=== PATIENT | female | born 1955 | race Caucasian/White ===

== ENCOUNTER → 2019-09-06 | Outpatient (CLI) | payer SELFPAY ==
[2019-09-06 11:22] LABS: BASOPHILS ABSOLUTE AUTO 0.02 K/mm3 (0.00-0.23); BASOPHILS PERCENT AUTO 0 % (0-2); EOSINOPHILS ABSOLUTE AUTO 0.13 K/mm3 (0.00-0.68); EOSINOPHILS PERCENT AUTO 3 % (0-6); IMMATURE GRAN ABSOLUTE AUTO 0.01 K/mm3 (0.00-0.10); IMMATURE GRAN PERCENT AUTO 0 % (0-1); LYMPHOCYTES ABSOLUTE AUTO 0.58 K/mm3 (0.84-5.20); LYMPHOCYTES PERCENT AUTO 12 % (21-46); MONOCYTES ABSOLUTE AUTO 0.56 K/mm3 (0.16-1.47); MONOCYTES PERCENT AUTO 11 % (4-13); Mean Corpuscular HGB 34.5 pg (26.0-34.0); Mean Corpuscular HGB Conc 34.2 g/dL (31.5-36.5); Mean Corpuscular Volume 101 fL (80-100); Mean Platelet Volume 12.2 fL (9.1-12.4); NEUTROPHILS ABSOLUTE AUTO 3.69 K/mm3 (1.96-9.15); NEUTROPHILS PERCENT AUTO 74 % (41-73); Platelet Count 60 K/mm3 (150-400); RDW Coefficient Variation 12.7 % (11.7-14.2); RDW Standard Deviation 47.4 fL (35.1-46.3); Red Blood Cell Count 3.77 M/mm3 (3.80-5.20); White Blood Cell Count 4.99 K/mm3 (4.00-11.30)
[2019-09-06 11:32] LABS: Albumin, Blood 2.7 g/dL (3.4-5.0); Albumin/Globulin Ratio 0.6 (0.8-1.8); Bilirubin, Total 1.6 mg/dL (0.1-1.0); Bun/Creatinine Ratio 14.4 (12.0-20.0); Calcium, Blood 8.9 mg/dL (8.5-10.1); Creatinine, Blood 1.32 mg/dL (0.40-1.00); Globulin, Blood 4.8 g/dL (2.2-4.0); Potassium, Blood 4.1 mmol/L (3.5-5.5); Total Protein, Blood 7.5 g/dL (6.4-8.2)
== END | disposition home or self-care (01) ==
LOC: LAB EV 11:18 → LAB SHORT 11:18
PROVIDERS: Physician Assistant
DX: L03.119 Cellulitis of unspecified part of limb (principal)
CPT/HCPCS: 80053; 85025

== ENCOUNTER 2019-09-14 07:31 | Day surgery (SDC) | payer SELFPAY | END 2019-09-14 22:38 | disposition home or self-care (01) | LOC: WOUND 07:31 | DX: E11.622 Type 2 diabetes mellitus with other skin ulcer (principal); L97.822 Non-pressure chronic ulcer of other part of left lower leg with fat layer exposed; L03.116 Cellulitis of left lower limb; Z88.5 Allergy status to narcotic agent; Z87.891 Personal history of nicotine dependence | CPT/HCPCS: 87071; 87075; 87077; 87186; 87205; G0463 ==

== ENCOUNTER 2019-09-23 00:06 | Day surgery (SDC) | payer SELFPAY | END 2019-09-23 23:54 | disposition home or self-care (01) | LOC: WOUND 00:06 | DX: E11.622 Type 2 diabetes mellitus with other skin ulcer (principal); L97.822 Non-pressure chronic ulcer of other part of left lower leg with fat layer exposed; L03.116 Cellulitis of left lower limb ==

== ENCOUNTER 2019-09-30 08:00 | Day surgery (SDC) | payer SELFPAY | END 2019-09-30 23:20 | disposition home or self-care (01) | LOC: WOUND 08:00 | DX: E11.622 Type 2 diabetes mellitus with other skin ulcer (principal); L97.829 Non-pressure chronic ulcer of other part of left lower leg with unspecified severity; L03.116 Cellulitis of left lower limb | CPT/HCPCS: G0463 ==

== ENCOUNTER 2019-10-08 10:25 | Day surgery (SDC) | payer SELFPAY | END 2019-10-08 23:09 | disposition home or self-care (01) | LOC: WOUND 10:25 | DX: E11.622 Type 2 diabetes mellitus with other skin ulcer (principal); L97.822 Non-pressure chronic ulcer of other part of left lower leg with fat layer exposed; E11.628 Type 2 diabetes mellitus with other skin complications; L03.115 Cellulitis of right lower limb; E11.52 Type 2 diabetes mellitus with diabetic peripheral angiopathy with gangrene; I96 Gangrene, not elsewhere classified; K74.60 Unspecified cirrhosis of liver ==

== ENCOUNTER 2019-11-04 08:00 | Day surgery (SDC) | payer BC | END 2019-11-04 23:04 | disposition home or self-care (01) | LOC: WOUND 08:00 | DX: E11.622 Type 2 diabetes mellitus with other skin ulcer (principal); L97.822 Non-pressure chronic ulcer of other part of left lower leg with fat layer exposed; I96 Gangrene, not elsewhere classified; I89.0 Lymphedema, not elsewhere classified; K74.60 Unspecified cirrhosis of liver ==

== ENCOUNTER 2019-11-12 07:50 | Day surgery (SDC) | payer BC | END 2019-11-12 23:52 | disposition home or self-care (01) | LOC: WOUND 07:50 | DX: E11.622 Type 2 diabetes mellitus with other skin ulcer (principal); L97.822 Non-pressure chronic ulcer of other part of left lower leg with fat layer exposed; E11.52 Type 2 diabetes mellitus with diabetic peripheral angiopathy with gangrene; I96 Gangrene, not elsewhere classified; I89.0 Lymphedema, not elsewhere classified; K74.60 Unspecified cirrhosis of liver; M17.12 Unilateral primary osteoarthritis, left knee ==

== ENCOUNTER 2019-11-19 07:54 | Day surgery (SDC) | payer BC | END 2019-11-19 23:48 | disposition home or self-care (01) | LOC: WOUND 07:54 | DX: E11.622 Type 2 diabetes mellitus with other skin ulcer (principal); L97.822 Non-pressure chronic ulcer of other part of left lower leg with fat layer exposed | CPT/HCPCS: G0463 ==

== ENCOUNTER 2019-11-26 07:55 | Day surgery (SDC) | payer BC | END 2019-11-26 22:52 | disposition home or self-care (01) | LOC: WOUND | DX: E11.622 Type 2 diabetes mellitus with other skin ulcer (principal); L97.829 Non-pressure chronic ulcer of other part of left lower leg with unspecified severity ==

== ENCOUNTER 2019-12-10 07:59 | Day surgery (SDC) | payer BC | END 2019-12-10 23:10 | disposition home or self-care (01) | LOC: WOUND | DX: E11.622 Type 2 diabetes mellitus with other skin ulcer (principal); L97.822 Non-pressure chronic ulcer of other part of left lower leg with fat layer exposed; E11.52 Type 2 diabetes mellitus with diabetic peripheral angiopathy with gangrene; I96 Gangrene, not elsewhere classified; I89.0 Lymphedema, not elsewhere classified; K74.60 Unspecified cirrhosis of liver ==

== ENCOUNTER 2019-12-13 11:56 | Day surgery (SDC) | payer BC | END 2019-12-13 22:41 | disposition home or self-care (01) | LOC: WOUND 11:56 | DX: E11.622 Type 2 diabetes mellitus with other skin ulcer (principal); L97.822 Non-pressure chronic ulcer of other part of left lower leg with fat layer exposed; E11.52 Type 2 diabetes mellitus with diabetic peripheral angiopathy with gangrene; I96 Gangrene, not elsewhere classified; I89.0 Lymphedema, not elsewhere classified; K74.60 Unspecified cirrhosis of liver; Z79.899 Other long term (current) drug therapy | CPT/HCPCS: G0463 ==

== ENCOUNTER 2019-12-17 00:55 | Day surgery (SDC) | payer BC | END 2019-12-17 23:05 | disposition home or self-care (01) | LOC: WOUND 00:55 | DX: E11.622 Type 2 diabetes mellitus with other skin ulcer (principal); L97.822 Non-pressure chronic ulcer of other part of left lower leg with fat layer exposed ==

== ENCOUNTER 2019-12-31 01:08 | Day surgery (SDC) | payer BC | END 2019-12-31 23:13 | disposition home or self-care (01) | LOC: WOUND 01:08 | DX: E11.622 Type 2 diabetes mellitus with other skin ulcer (principal); L97.829 Non-pressure chronic ulcer of other part of left lower leg with unspecified severity; R60.9 Edema, unspecified ==

== ENCOUNTER 2020-01-07 02:31 | Day surgery (SDC) | payer BC | END 2020-01-07 23:23 | disposition home or self-care (01) | LOC: WOUND 02:31 | DX: E11.622 Type 2 diabetes mellitus with other skin ulcer (principal); L97.829 Non-pressure chronic ulcer of other part of left lower leg with unspecified severity | CPT/HCPCS: G0463 ==

== ENCOUNTER 2020-01-21 00:38 | Day surgery (SDC) | payer BC | END 2020-01-21 23:05 | disposition home or self-care (01) | LOC: WOUND 00:38 | DX: E11.622 Type 2 diabetes mellitus with other skin ulcer (principal); L97.822 Non-pressure chronic ulcer of other part of left lower leg with fat layer exposed; R60.9 Edema, unspecified ==

== ENCOUNTER 2020-01-28 01:03 | Day surgery (SDC) | payer BC | END 2020-01-28 23:35 | disposition home or self-care (01) | LOC: WOUND 01:03 | DX: E11.622 Type 2 diabetes mellitus with other skin ulcer (principal); L97.829 Non-pressure chronic ulcer of other part of left lower leg with unspecified severity; R60.9 Edema, unspecified; K74.60 Unspecified cirrhosis of liver ==

== ENCOUNTER 2020-02-04 01:47 | Day surgery (SDC) | payer BC | END 2020-02-04 23:22 | disposition home or self-care (01) | LOC: WOUND 01:47 | DX: E11.622 Type 2 diabetes mellitus with other skin ulcer (principal); L97.829 Non-pressure chronic ulcer of other part of left lower leg with unspecified severity; R60.9 Edema, unspecified ==

== ENCOUNTER 2020-02-11 02:51 | Day surgery (SDC) | payer BC | END 2020-02-11 23:09 | disposition home or self-care (01) | LOC: WOUND 02:51 | DX: E11.622 Type 2 diabetes mellitus with other skin ulcer (principal); L97.822 Non-pressure chronic ulcer of other part of left lower leg with fat layer exposed; K74.60 Unspecified cirrhosis of liver | CPT/HCPCS: G0463 ==

== ENCOUNTER 2020-02-25 00:38 | Day surgery (SDC) | payer BC | END 2020-02-25 22:39 | disposition home or self-care (01) | LOC: WOUND 00:38 | DX: E11.622 Type 2 diabetes mellitus with other skin ulcer (principal); L97.829 Non-pressure chronic ulcer of other part of left lower leg with unspecified severity; I87.2 Venous insufficiency (chronic) (peripheral); K74.60 Unspecified cirrhosis of liver | CPT/HCPCS: G0463 ==

== ENCOUNTER 2020-03-10 00:17 | Day surgery (SDC) | payer BC | END 2020-03-10 22:36 | disposition home or self-care (01) | LOC: WOUND 00:17 | DX: E11.622 Type 2 diabetes mellitus with other skin ulcer (principal); L97.822 Non-pressure chronic ulcer of other part of left lower leg with fat layer exposed; K74.60 Unspecified cirrhosis of liver; R60.9 Edema, unspecified ==

== ENCOUNTER 2020-03-24 00:41 | Day surgery (SDC) | payer BC | END 2020-03-24 23:10 | disposition home or self-care (01) | LOC: WOUND 00:41 | DX: E11.622 Type 2 diabetes mellitus with other skin ulcer (principal); L97.829 Non-pressure chronic ulcer of other part of left lower leg with unspecified severity; R60.9 Edema, unspecified | CPT/HCPCS: G0463 ==

== ENCOUNTER 2020-05-10 10:31 | Day surgery (SDC) | payer BC ==
[~2020-05-10] VITALS: Ht 160 cm; Wt 113.8 kg
[~2020-05-10 10:31] MED LIST: ALDACTONE100 MG PO; FURO80 PO; HYDHCL25 PO; PROP10 PO
== END 2020-05-10 12:22 | disposition home or self-care (01) ==
LOC: ORSCSDS 10:31
PROVIDERS: Internal Medicine Gastroenterology
PROC: 0DJ08ZZ Inspection of Upper Intestinal Tract, Via Natural or Artificial Opening Endoscopic (ICD-10-PCS; principal; 2020-05-10 11:45)
DX: K74.60 Unspecified cirrhosis of liver (principal); Z13.810 Encounter for screening for upper gastrointestinal disorder; K20.9 Esophagitis, unspecified; K76.6 Portal hypertension; K31.89 Other diseases of stomach and duodenum; I10 Essential (primary) hypertension; E11.9 Type 2 diabetes mellitus without complications; E66.01 Morbid (severe) obesity due to excess calories; Z68.41 Body mass index [BMI] 40.0-44.9, adult; Z79.899 Other long term (current) drug therapy
CPT/HCPCS: 82947; J2704; J7120

== ENCOUNTER → 2022-10-25 | Outpatient (CLI) | payer MEDICARE | END | disposition home or self-care (01) | DX: K74.60 Unspecified cirrhosis of liver (principal); R18.8 Other ascites ==

== ENCOUNTER 2022-11-07 11:02 | Inpatient (IN) | payer MEDICARE ==
[~2022-11-07] VITALS: Ht 160 cm; Wt 104.3 kg
[2022-11-07 11:47] LABS: BASOPHILS ABSOLUTE AUTO 0.03 K/mm3 (0.00-0.23); BASOPHILS PERCENT AUTO 1 % (0-2); EOSINOPHILS ABSOLUTE AUTO 0.11 K/mm3 (0.00-0.68); EOSINOPHILS PERCENT AUTO 2 % (0-6); Hematocrit 26.9 % (33.0-51.0); Hemoglobin 9.1 g/dL (11.5-16.0); IMMATURE GRAN ABSOLUTE AUTO 0.02 K/mm3 (0.00-0.10); IMMATURE GRAN PERCENT AUTO 0 % (0-1); LYMPHOCYTES ABSOLUTE AUTO 0.43 K/mm3 (0.84-5.20); LYMPHOCYTES PERCENT AUTO 9 % (21-46); MONOCYTES ABSOLUTE AUTO 0.65 K/mm3 (0.16-1.47); MONOCYTES PERCENT AUTO 13 % (4-13); Mean Corpuscular HGB 33.8 pg (26.0-34.0); Mean Corpuscular HGB Conc 33.8 g/dL (31.5-36.5); Mean Corpuscular Volume 100 fL (80-100); Mean Platelet Volume 10.8 fL (9.1-12.4); NEUTROPHILS ABSOLUTE AUTO 3.69 K/mm3 (1.96-9.15); NEUTROPHILS PERCENT AUTO 75 % (41-73); Platelet Count 87 K/mm3 (150-400); RDW Coefficient Variation 14.6 % (11.7-14.2); RDW Standard Deviation 51.5 fL (35.1-46.3); Red Blood Cell Count 2.69 M/mm3 (3.80-5.20); White Blood Cell Count 4.93 K/mm3 (4.00-11.30)
[2022-11-07 12:16] LABS: Alanine Aminotransfer (ALT/SGP 40 U/L (12-78); Albumin/Globulin Ratio 0.4 (0.8-1.8); Alk Phos 134 U/L (50-136); Anion Gap 8 mmol/L (6-16); Aspartate Aminotrans (AST/SGOT 61 U/L (12-37); Bilirubin, Total 4.3 mg/dL (0.1-1.0); Blood Urea Nitrogen 43 mg/dL (8-24); Bun/Creatinine Ratio 20.8 (12.0-20.0); CO2, Blood 20 mmol/L (21-32); Calcium, Blood 8.9 mg/dL (8.5-10.1); Chloride, Blood 104 mmol/L (98-108); Creatinine, Blood 2.07 mg/dL (0.40-1.00); Ethanol (Alcohol), Blood, Med <3 mg/dL; Globulin, Blood 4.6 g/dL (2.2-4.0); Glomerular Filtration Rate 26 (60-); Glucose, Blood 168 mg/dL (70-99); Potassium, Blood 4.6 mmol/L (3.5-5.5); Sodium, Blood 132 mmol/L (136-145); Total Protein, Blood 6.6 g/dL (6.4-8.2)
[2022-11-07 13:08] LABS: Source, Urine Clean Catch
[2022-11-07 13:15] LABS: Appearance, Urine Hazy (Clear); Blood, Urine Neg (Neg); Color, Urine Amber (P-Yellow); Glucose Qualitative, Urine Neg (Neg); Ketones, Urine 1+ (Neg); Leukocyte Esterase, Urine Neg (Neg); Nitrite, Urine Neg (Neg); Protein, Urine 1+ (Neg); Specific Gravity, Urine 1.025 (1.003-1.022); Urobilinogen, Urine 1+ (Normal)
[2022-11-07 13:15] LABS: Influenza A, PCR NEGATIVE (NEGATIVE); Influenza B, PCR NEGATIVE (NEGATIVE); Resp Syncytial Virus, PCR NEGATIVE (NEGATIVE); SARS-Cov-2 (COVID-19) PCR, MMC NEGATIVE (NEGATIVE)
[2022-11-07 13:31] LABS: Bilirubin, Urine 1+ (Neg)
[2022-11-07 13:32] LABS: Hyaline Casts 50-100 /lpf (0-2); Squamous Epithelial Cells Many /hpf (Few)
[2022-11-07] MEDS ORDERED: FURO80 PO (13:36)
[2022-11-07] MEDS ORDERED: FAMO20 PO (13:36)
[2022-11-07] MEDS ORDERED: CYCL10 PO (13:36)
[2022-11-07 13:38] LABS: Red Blood Cells, Urine 0-2 /hpf (0-2); White Blood Cells, Urine 0-2 /hpf (0-5)
[2022-11-07] MEDS ORDERED: PROP10 PO (13:38)
[2022-11-07 13:39] LABS: Bacteria Few /hpf
[2022-11-07 14:35] LABS: Base Excess Venous -3.4 mmol/L; Bicarbonate Venous 21.8 mmol/L (24.0-30.0); pH Blood Venous 7.39 (7.34-7.37)
--- NOTE | 2022-11-07 18:55 | NUR ---
ADMIT 325 REPORT RECEIVED. PT ARRIVED VIA GURNEY ACCOMAPNIED BY WAREHOUSE PROCESSOR. PT JAUNDICED. SHE OPENED HER EYES AND SMILED. TRANSFERED TO NEW BED WITH SLIDER AND 4 ASSIST. IV FLUID BOLUS 500ML COMPLETE. VSS CHECKED. STARTED ORDERED ALBUMIN AND RESTARTED NS 125 ML/HR. SISTER AT BEDSIDE. SONS ARE COMING FROM [place] AND [place]. WITH IVF/ALBUMIN BP HAS STABLIZED AND INCREASED. CONTINUE POC.
--- NOTE | 2022-11-08 04:15 | NUR ---
SHIFT SUMMARY: PT IS ALERT X 1-2, RESPONDS APPROPRIATELY TO QUESTIONS, BUT IS RATHER LETHARGIC. PT REPORTS UNWILLINGNESS TO HAVE RECTAL TUBE TO ADMINISTER LACTULOSE ENEMAS, CALLED DR. TRACY AND RECIEVED ORDER FOR PO LACTULOSE; PT ABLE TO SWALLOW. PT SLEPT MUCH OF THE SHIFT WHEN NOT DISTURBED. NO S/S FOR PAIN, NAUSEA, VOMITING, OR SOB. FLUIDS RUNNING ORDERED. BED IN LOW POSITION, CALL LIGHT WITHIN REACH. WILL REPORT TO DAY NURSE.
[2022-11-08 05:23] LABS: Hematocrit 19.9 % (33.0-51.0); Hemoglobin 6.7 g/dL (11.5-16.0); Mean Corpuscular HGB 33.8 pg (26.0-34.0); Mean Corpuscular HGB Conc 33.7 g/dL (31.5-36.5); Mean Corpuscular Volume 101 fL (80-100); Mean Platelet Volume 11.2 fL (9.1-12.4); Platelet Count 51 K/mm3 (150-400); RDW Coefficient Variation 14.5 % (11.7-14.2); RDW Standard Deviation 51.8 fL (35.1-46.3); Red Blood Cell Count 1.98 M/mm3 (3.80-5.20); White Blood Cell Count 2.91 K/mm3 (4.00-11.30)
[2022-11-08 06:00] LABS: Albumin, Blood 1.9 g/dL (3.4-5.0); Albumin/Globulin Ratio 0.5 (0.8-1.8); Bilirubin, Total 4.3 mg/dL (0.1-1.0); Bun/Creatinine Ratio 21.2 (12.0-20.0); Calcium, Blood 8.4 mg/dL (8.5-10.1); Creatinine, Blood 1.79 mg/dL (0.40-1.00); Globulin, Blood 3.5 g/dL (2.2-4.0); Potassium, Blood 4.3 mmol/L (3.5-5.5); Total Protein, Blood 5.4 g/dL (6.4-8.2)
--- NOTE | 2022-11-08 20:00 | NUR ---
SHIFT SUMMARY PTN DNR, HEPATIC ENCEPHALOPATHY, WHO WAS LETHARGIC LAST SHIFT AND EARLY THIS SHIFT, BUT THEN PTN PERKED UP AND WAS VISITING WITH FAMILY AND CHEERFUL ALL SHIFT. PTN RECEIVED BLOOD TRANSFUSION AND ALBUMIN. PTN RUNNING NS 125 ML/HR. PTN NOW A&O X3-4. WEAK AND REQUIRED ASSIST WITH TRANSFER FROM BED TO BEDSIDE COMMODE. PTN COULD NOT TOLERATE LACTULOSE ELIXER AND OPTED FOR MEDICATION THROUGH RECTAL ENEMA. PTN TOLERATED THIS WELL, BUT WAS NOT ABLE TO HOLD THE LIQUID IN COMPLETELY, RELEASING MOST ON CHUX PADS, IN COMMODE WAS ABOUT 300ML WITH 3 CLUMPS OF FORMED STOOL. PTN NPO AFTER MIDNIGHT FOR POSSIBLE EGD TOMORROW. CONTINUE TO MONITOR.
[2022-11-09 05:33] LABS: BASOPHILS ABSOLUTE AUTO 0.02 K/mm3 (0.00-0.23); BASOPHILS PERCENT AUTO 1 % (0-2); EOSINOPHILS PERCENT AUTO 3 % (0-6); Hematocrit 25.1 % (33.0-51.0); Hemoglobin 8.3 g/dL (11.5-16.0); IMMATURE GRAN ABSOLUTE AUTO 0.02 K/mm3 (0.00-0.10); IMMATURE GRAN PERCENT AUTO 1 % (0-1); LYMPHOCYTES ABSOLUTE AUTO 0.41 K/mm3 (0.84-5.20); LYMPHOCYTES PERCENT AUTO 11 % (21-46); MONOCYTES ABSOLUTE AUTO 0.57 K/mm3 (0.16-1.47); MONOCYTES PERCENT AUTO 16 % (4-13); Mean Corpuscular HGB 33.6 pg (26.0-34.0); Mean Corpuscular HGB Conc 33.1 g/dL (31.5-36.5); Mean Corpuscular Volume 102 fL (80-100); Mean Platelet Volume 10.9 fL (9.1-12.4); NEUTROPHILS ABSOLUTE AUTO 2.53 K/mm3 (1.96-9.15); NEUTROPHILS PERCENT AUTO 70 % (41-73); Platelet Count 55 K/mm3 (150-400); RDW Coefficient Variation 16.8 % (11.7-14.2); RDW Standard Deviation 61.5 fL (35.1-46.3); Red Blood Cell Count 2.47 M/mm3 (3.80-5.20); White Blood Cell Count 3.65 K/mm3 (4.00-11.30)
[2022-11-09 05:50] LABS: Albumin, Blood 2.3 g/dL (3.4-5.0); Albumin/Globulin Ratio 0.7 (0.8-1.8); Bilirubin, Total 7.8 mg/dL (0.1-1.0); Bun/Creatinine Ratio 22.4 (12.0-20.0); Calcium, Blood 8.5 mg/dL (8.5-10.1); Creatinine, Blood 1.56 mg/dL (0.40-1.00); Globulin, Blood 3.4 g/dL (2.2-4.0); Potassium, Blood 4.6 mmol/L (3.5-5.5); Total Protein, Blood 5.7 g/dL (6.4-8.2)
--- NOTE | 2022-11-09 06:51 | NUR ---
A/OX3-4; FORGETFUL /IRRITABLE AT TIMES. COOPERATIVE WITH CARE. NO ACUTE CHANGES THIS SHIFT. MULTIPLE PIV STARTS D/T FAILED (LEAKING) IVs; WIRE BOUND BOX MACHINE HELPER ALERTED TO NEED FOR POWERGLIDE IV. WILL TAKE PO LACTULOSE IF: DILUTED WITH CRANBERRY JUICE /SPRITE /ICE (WITH A STRAW AND NOSE PLUGGED) BED ALARM SET, CALL LIGHT IN REACH; ENCOURAGED TO MAKE NEEDS KNOWN.
--- NOTE | 2022-11-09 14:09 | NUR ---
PATIENT LEFT THE ROOM AT THIS TIME TRANSPORTED VIA GURNEY TO DAY SURGERY BY DAY SURGERY RN, JON.
--- NOTE | 2022-11-09 14:40 | NUR ---
11/09/22 1440 Alis Rosales MONITOR INTACT WITH CONTINUOUS PULSE OXIMETRY AND INTERMITTENT BP.
--- NOTE | 2022-11-09 15:05 | NUR ---
PT AWAKE FROM EGD, RESPONDING APPROPRIATELY, BREATHING RA, VSS. NO NAUSEA OR PAIN. PT APPROPRIATE FOR TRANSFER TO THE FLOOR
--- NOTE | 2022-11-09 18:23 | NUR ---
SHIFT SUMMARY: PATIENT A&OX3-4. FORGETFUL AND MILD CONFUSION. PLEASANT AND COOPERATIVE WITH CARE. USES CALL LIGHT APPROPRIATELY AND ABLE TO ADVOCATE FOR HER NEEDS. PATIENT HAS BEEN NPO SINCE MD FOR EGD TODAY. SCHEDULED PO MEDS WAS NOT GIVEN THIS AM. DENIES CP/CHEST DISCOMFORT. DENIES N/V. LUNGS CLEAR T/O TO AUSCULTATION. DENIES SOB, RR UNLABORED. PATIENT ON RA c SPO2 ABOVE 96%. PATIENT HAD EGD DONE THIS PM. POST-OP VITALS WAS TAKEN. ASSESS PATIENT GAG REFLEX AND SWALLOWING. DENIES TROAT PAIN/DISCOMFORT. PM SCHEDULED LACTULOSE AND PROPRANOLOL WAS GIVEN. PATIENT UP WITH 1-2 ASSIST TO BSC. IV TO L FOREARM SALINE LOCKED. IV TO R AC INFUSING NS AT 125 MLS/HR. VITAL SIGNS REVIEWED. FAMILY AT BEDSIDE T/O THE DAY. BED ALARM ON FOR SAFETY. CALL LIGHT IN REACH.
[2022-11-10 06:06] LABS: BASOPHILS ABSOLUTE AUTO 0.03 K/mm3 (0.00-0.23); BASOPHILS PERCENT AUTO 1 % (0-2); EOSINOPHILS PERCENT AUTO 4 % (0-6); Hemoglobin 8.8 g/dL (11.5-16.0); IMMATURE GRAN ABSOLUTE AUTO 0.03 K/mm3 (0.00-0.10); IMMATURE GRAN PERCENT AUTO 1 % (0-1); LYMPHOCYTES ABSOLUTE AUTO 0.39 K/mm3 (0.84-5.20); LYMPHOCYTES PERCENT AUTO 7 % (21-46); MONOCYTES ABSOLUTE AUTO 0.89 K/mm3 (0.16-1.47); MONOCYTES PERCENT AUTO 16 % (4-13); Mean Corpuscular HGB Conc 32.6 g/dL (31.5-36.5); Mean Corpuscular Volume 101 fL (80-100); NEUTROPHILS ABSOLUTE AUTO 4.16 K/mm3 (1.96-9.15); NEUTROPHILS PERCENT AUTO 73 % (41-73); Platelet Count 71 K/mm3 (150-400); RDW Coefficient Variation 16.5 % (11.7-14.2); Red Blood Cell Count 2.67 M/mm3 (3.80-5.20)
[2022-11-10 06:37] LABS: Albumin, Blood 2.2 g/dL (3.4-5.0); Albumin/Globulin Ratio 0.6 (0.8-1.8); Bilirubin, Total 5.6 mg/dL (0.1-1.0); Bun/Creatinine Ratio 21.8 (12.0-20.0); Calcium, Blood 8.5 mg/dL (8.5-10.1); Creatinine, Blood 1.47 mg/dL (0.40-1.00); Globulin, Blood 3.5 g/dL (2.2-4.0); Potassium, Blood 4.1 mmol/L (3.5-5.5); Total Protein, Blood 5.7 g/dL (6.4-8.2)
[2022-11-10] MEDS ORDERED: Furosemide40 MG PO (14:20)
[2022-11-10] MEDS ORDERED: SPIR50 PO (14:23)
[2022-11-10] MEDS ORDERED: LACT10SY PO (14:24)
[2022-11-10] MEDS ORDERED: PANT40 PO (14:25)
[2022-11-10] MEDS ORDERED: VISBIOME 112.51 EACH PO (14:25)
[2022-11-10] MEDS ORDERED: CIPR250 PO (14:26)
--- NOTE | 2022-11-10 15:18 | NUR ---
DISCHARGE NOTE- THE PT AND HER SONS WERE GIVEN VERBAL AND WRITTEN DISCHARGE INSTRUCTIONS AND ACKNOWLEDGED UNDERSTANDING OF THEM. BOTH OF THE PT IV'S WERE DC'D AND SHE WAS ASSISTED BY TWO STAFF MEMBERS TO CHANGE. HAIR WAS BRUSHED AND HER TWO SONS ASSISTED HER UP OUT OF BED AND INTO A WC. PT ESCORTED OUT VIA WC BY THE HOME COMPANION. SON CARLOS ENRIQUE ROQUE WOULD LIKE TO BE CONTACTED FOR HOME HEALTH ADMISSION, NUMBER ON THE FACE SHEET . OTHER SON JONELLE IS ALTERNATE CONTACT . WILL LEAVE A HAND WRITTEN NOTE FOR CARE MANAGEMENT.
--- NOTE | 2022-11-10 15:23 | NUR ---
ATTENTION CARE MANAGEMENT CONTACT INFO FOR ADMISSION TO HOME HEALTH ISELA ROQUE ISELA SCHMID
== END 2022-11-10 15:16 | disposition home health service (06) | DRG 442 ==
LOC: ER 11:02 → ERHOLD 11:03 → MEDS 18:15 → ERHOLD 18:15 → MEDS 18:22 → ERHOLD 11-08 10:06 → MEDS 11-08 10:07
PROVIDERS: Emergency Medicine; Internal Medicine; Nurse Practitioner Acute Care; Student in an Organized Health Care Education/Training Program; ADMIT Internal Medicine
PROC: 0W9G3ZZ Drainage of Peritoneal Cavity, Percutaneous Approach (ICD-10-PCS; 2022-11-07)
PROC: 30233N1 Transfusion of Nonautologous Red Blood Cells into Peripheral Vein, Percutaneous Approach (ICD-10-PCS; 2022-11-08)
PROC: 0DJ08ZZ Inspection of Upper Intestinal Tract, Via Natural or Artificial Opening Endoscopic (ICD-10-PCS; principal; 2022-11-09 15:30)
DX: K76.82 Hepatic encephalopathy (principal); E72.20 Disorder of urea cycle metabolism, unspecified; N17.9 Acute kidney failure, unspecified; K76.6 Portal hypertension; K22.10 Ulcer of esophagus without bleeding; I85.10 Secondary esophageal varices without bleeding; R18.8 Other ascites; Z66 Do not resuscitate; D69.6 Thrombocytopenia, unspecified; K75.81 Nonalcoholic steatohepatitis (NASH); K74.69 Other cirrhosis of liver; Z20.822 Contact with and (suspected) exposure to COVID-19; K31.89 Other diseases of stomach and duodenum; K26.9 Duodenal ulcer, unspecified as acute or chronic, without hemorrhage or perforation; E11.22 Type 2 diabetes mellitus with diabetic chronic kidney disease; D63.1 Anemia in chronic kidney disease; N18.9 Chronic kidney disease, unspecified; E86.0 Dehydration; E86.9 Volume depletion, unspecified; Z88.5 Allergy status to narcotic agent; Z79.899 Other long term (current) drug therapy; Z79.01 Long term (current) use of anticoagulants; Z90.49 Acquired absence of other specified parts of digestive tract; Z98.890 Other specified postprocedural states
CPT/HCPCS: 0241U; 36415; 36430; 49083; 70450; 76705; 80053; 81001; 82140; 82550; 82803; 82947; 83880; 85025; 85027; 86850; 86900; 86901; 86923; 96374; 97116; 97162; 97166; 97530; 97535; 99285-25; A9270; C9113; G0378; G0480; J0696; J2001; J2354; J2405; J2704; J7030; J7050; P9016; P9047; P9612

== ENCOUNTER 2022-11-12 10:14 | Emergency (ER) | payer MEDICARE ==
[~2022-11-12] VITALS: Ht 167.6 cm; Wt 180.0 kg
[~2022-11-12 10:14] MED LIST changes: +CIPR250 PO; +CYCL10 PO; +FAMO20 PO; +Furosemide40 MG PO; +LACT10SY PO; +PANT40 PO; +SPIR50 PO; +VISBIOME 112.51 EACH PO
[2022-11-12] MEDS ORDERED: PANTOPRAZOLE SO40 M2 PO (10:38)
[2022-11-12] MEDS ORDERED: CONSTULOSE10 GM/155 PO (10:39)
[2022-11-12] MEDS ORDERED: VISBIOME 112.51 EACH PO (10:40)
--- NOTE | 2022-11-12 12:01 | NUR ---
ED Palliative Care Consult Spoke with Dr Siddiqui and discussed case. Pt to the ED for not eating, drinking, and not making urine since yesterday. Pt recently D/C from the hospital. Pt has end stage liver cirrohis with sons reporting Pt having POLST for comfort measures only. Goals of care discussion may be beneficial. Pt resting on gurney with her eyes closed. Sons Phillip and Fernando at bedside. Engaged in therapeutic discussion regarding goals of care. Both Phillip and Fernando report having discussion and feel that Pt's wishes on her POLST should be honored. They both report wishes for Pt to receive hospice services. Phillip reports his is a hospice nurse in [place] and has a good understanding of hospice philosophy. Discussed hospice agencies to choose from. Family chooses [facility]. Provided choice letter and son Phillip signs. Placed in Pt's chart. Spoke with [facility] Software Validation Engineer Marlen who reports ability to admit Pt onto services tomorrow. Family is agreeable for Pt to D/C from the ED today with [facility] to admit tomorrow. Palliative Care will remain available.
== END 2022-11-12 13:01 | disposition home or self-care (01) ==
LOC: ER 10:14
DX: K72.90 Hepatic failure, unspecified without coma (principal); K75.81 Nonalcoholic steatohepatitis (NASH); E11.9 Type 2 diabetes mellitus without complications; Z88.5 Allergy status to narcotic agent; Z79.899 Other long term (current) drug therapy; Z66 Do not resuscitate
CPT/HCPCS: 99284